=== PATIENT | male | born 1975 | race Caucasian/White ===

== ENCOUNTER 2019-02-21 10:25 | Emergency (ER) | payer MEDICAID, SELFPAY ==
[2019-02-21 10:33] VITALS: BP 123/79; PULSE 83; RESP 14; TEMP 37; O2SAT 99
--- NOTE | 2019-02-21 10:34 | ED.GENADUL_ITS ---
Discharge Plan Disposition Patient Disposition: HOME Condition: Stable Discharge Details Chief Complaint: Nk/Back Pain Clinical Impression: Lumbar paraspinal muscle spasm, Back pain Primary Care Provider: Diana Pearson ED Provider: Claudine Gonzales Home Meds and New Rx's Prescriptions: No Action omeprazole 20 MG capsule,delayed release(DR/EC) 20 mg PO DAILY PRN PRNRF: 0 pseudoephedrine HCl [Sudogest] 30 MG tablet 60 mg PO PRN PRNRF: 0 albuterol sulfate [Ventolin HFA] 60 PUFF HFA aerosol inhaler 2 puff Inhalation DIRECTED PRNQty: 0 RF: 0 methylphenidate HCl [Concerta] 18 mg Tablet Extended Release 24hr 18 mg PO QAM RF: 0 Medical Decision Making 44-year-old male presents with right-sided lower back pain for the past few days after bending forward picking up a tire. No cauda equina symptoms. No fever. Vitals within normal limits. No focal deficits. Patient's lumbar spine appears rotated and out of alignment. There is no bony deformity or step-off noted to spine. He is tender in the right paraspinal lumbar region and right buttock region. There is no evidence of rash or trauma. Patient drove himself to the emergency department. Patient states he was told by his primary care doctor to limit his use of ibuprofen due to having one small kidney. Appears consistent with musculoskeletal strain/spasm. As patient drove himself to the emergency department, will hold on any sedating medications at this time. We will send home with a prescription for methocarbamol. We will hold on any Toradol, or steroid prescription due to his concern for his kidney. Patient is instructed that he can have pain for several days to 1 to 2 weeks if his back continues to spasm. He is instructed to alternate ice and heat, Tylenol, take the muscle relaxer as directed. Also sent home with 3 tabs of oxycodone. He is instructed return here if worse. HPI General Mode of arrival: ambulatory . Date/Time Provider Initiated Documentation: 02/21/19 10:32 . Limitations to Documentation: no limitations . Information obtained by: patient . HPI Narrative: Patient is a 44-year-old male who presents the ED with complaint of right-sided lower back pain for the past 2 days after bending forward picking up tires at work. Patient admits to sudden onset of right-sided lower back and right buttock pain. He states since then the pain is progressed down his right posterior thigh. He denies any fever, nausea, vomiting, abdominal pain, bowel or bladder incontinence, leg weakness or numbness. He states he has history of one small kidney and was advised to limit his use of ibuprofen. He states he is taken Tylenol without relief. Related Data Home Medications Medication Instructions Recorded Confirmed omeprazole 20 mg PO DAILY PRN PRN 01/11/15 02/21/19 albuterol sulfate [Ventolin HFA] 2 puff INHALATION DIRECTED PRN 04/27/17 02/21/19 #0 pseudoephedrine HCl [Sudogest] 60 mg PO PRN PRN 04/27/17 02/21/19 methylphenidate HCl [Concerta] 18 mg PO QAM 02/21/19 02/21/19 Previous Rx's Medication Instructions Recorded albuterol sulfate [Ventolin HFA] 2 puff INHALATION DIRECTED PRN 04/27/17 #0 Allergies Allergy/AdvReac Type Severity Reaction Status Date / Time No Known Allergies Allergy Unverified 02/21/19 10:37 Review of Systems Review of Systems All systems reviewed & are unremarkable except as noted in HPI and below Constitutional Reports as per HPI, Denies chills and Denies fever(s) Eyes Denies blurry vision ENT Denies dizziness, Denies sore throat and Denies throat swelling Cardiovascular Denies chest pain and Denies dyspnea Respiratory Denies cough and Denies dyspnea Gastrointestinal Denies abdominal pain, Denies diarrhea and Denies vomiting Genitourinary Denies hematuria and Denies dysuria Musculoskeletal Reports back pain and Denies numbness Integumentary/Breasts Denies lesions and Denies rash Neurologic Denies dizziness, Denies focal weakness and Denies numbness Allergic/Immunologic Denies throat swelling [facility] Medical History ADD (attention deficit disorder) Anal fissure GERD (gastroesophageal reflux disease) Lateral epicondylitis Sciatica Surgical History History of hernia repair (Chronic) Social History Smoking/Tobacco Use Status: Current every day Drug use: Daily Do you feel safe at home: Yes Do you feel safe in your relationship?: Yes Exam Const General: cooperative, healthy appearing and no acute distress [facility] Head: normal to inspection Face and sinus: normal facial exam Eyes General: appearance normal, both eyes and all related structures EOM: EOM intact bilaterally Neck Neck: normal visual inspection and No submandibular swelling Lymphatic: no lymphadenopathy noted Chest Chest: normal inspection of the chest and no tenderness Resp Effort & Inspection: normal respiratory effort and able to speak in complete sentences Auscultation: clear to auscultation bilaterally Cardio Rate: regular rate Rhythm: regular rhythm GI Inspection: normal to inspection Palpation: soft, not firm, not rigid and nontender Auscultation: normal bowel sounds Male General Exam: Yes normal external exam Back/Spine/Pelvis Thoracic/Lumbar Spine: thoracic and lumbar spine normal to inspection and straight leg raise negative bilaterally Other: Lower back appears rotated, alignment rotated. Tender to palpation right lumbar paraspinal region and right buttock. Skin General skin exam: no rashes or lesions noted Neuro General: alert, awake and oriented x3 Cognition: normal cognition Speech: speech normal Motor: muscle tone normal throughout and strength 5/5 throughout Sensory Exam: no sensory deficits noted Extrem General: normal to inspection, full ROM and no edema Other: Bilateral DP/PT pulses intact. Psych Appearance: grossly normal Mental Status: mental status grossly normal Speech and Movement: speech and movement normal Affect: normal affect
[2019-02-21] MEDS: oxyCODONE 5 MG TAB 15 MG PO (12:02)
== END 2019-02-21 12:09 | disposition home or self-care (01) ==
PROVIDERS: Emergency Provider Physician Assistant; PCP Physician Assistant Medical
DX: M62.830 Muscle spasm of back (principal)
CPT/HCPCS: 99283

== ENCOUNTER 2023-04-16 20:24 | Emergency (ER) | payer MEDICAID, SELFPAY ==
[2023-04-16 20:41] VITALS: BP 127/83; PULSE 98; RESP 16; TEMP 36.4; O2SAT 94
[2023-04-16] MEDS: Tetracaine 0.5% 4 ML BTL OP (21:03)
--- NOTE | 2023-04-16 21:10 | ED.GENADUL_ITS ---
Discharge Plan Disposition Patient Disposition: Home Discharge Details Clinical Impression: Eye foreign body Primary Care Provider: Diana Pearson ED Provider: Casey Santiago Home Meds and New Rx's Prescriptions: No Action omeprazole 20 MG capsule,delayed release(DR/EC) 20 mg PO DAILY PRN PRN pseudoephedrine HCl [Sudogest] 30 MG tablet 60 mg PO PRN PRN albuterol sulfate [Ventolin HFA] 60 PUFF HFA aerosol inhaler 2 puff Inhalation DIRECTED PRNQty: 0 0RF methylphenidate HCl [Concerta] 18 mg Tablet Extended Release 24hr 18 mg PO QAM methocarbamol 750 mg tablet 750 mg PO QID PRN (Reason: muscle spasm) Qty: 14 0RF Discharge Instructions Instructions: Eye Foreign Body (ED) Additional Instructions: You were seen in the emergency department for a sensation of a foreign body in your left eye. It does look like you could have a small foreign body at the 10 o'clock position of the left eye. We tried to remove this at bedside but we were unsuccessful. We sent a referral to the eye care center in [facility]. Call them tomorrow morning and they will be expecting a call to see them in the office tomorrow. Please return if you develop any worsening pain, any loss of vision, or any other symptoms that are worrisome to you. Follow-up with your primary care doctor additionally. Referrals: [facility] [Outside] - 1 day Diana Pearson [Primary Care Provider] - 1 week Medical Decision Making 48-year-old male presents with foreign body sensation in the left eye. It does look like he could have a foreign body in the 10 o'clock position in the left eye. I tried to remove this at bedside without success. He has no vision changes. No severe eye pain and he is able to keep his eye open without difficulty. No redness or swelling or proptosis to the eye to suggest a more serious cause of the patient's symptomology. I do think it is caused by this small foreign body. I have exhausted techniques in the air in the emergency department to remove this. I have sent a referral to should be to see him urgently. He said he will call their office first thing in the morning and I will recommend that they see him tomorrow afternoon. He is agreeable with this plan and says the pain is not that bad but he can just feel it. Will discharge with return precautions. Medical Records Medical records reviewed: Yes I reviewed the patient's medical records. HPI General Date/Time Provider Initiated Documentation: 04/16/23 20:37 . Limitations to Documentation: no limitations . Information obtained by: patient . HPI Narrative: 48-year-old male presents with foreign body sensation in the left eye. Says that it started yesterday. Can think of anything that he got into his eye. His son looked at his eye and it looks like he had same thing in the 10 o'clock position in the left eye. He came here. Denies vision changes. Denies any other complaints. Does not work with metal. Related Data Home Medications Medication Instructions Recorded Confirmed omeprazole 20 mg capsule,delayed 20 mg PO DAILY PRN PRN 01/11/15 04/16/23 release albuterol sulfate 90 mcg/actuation 2 puff inhalation DIRECTED PRN 04/27/17 04/16/23 aerosol inhaler (Ventolin HFA) ##0 pseudoephedrine HCl 30 mg tablet 60 mg PO PRN PRN 04/27/17 04/16/23 (Sudogest) methocarbamol 750 mg tablet 750 mg PO QID PRN muscle spasm #14 02/21/19 04/16/23 tabs methylphenidate HCl 18 mg 18 mg PO QAM 02/21/19 04/16/23 tablet,extended release 24 hr (Concerta) Previous Rx's Medication Instructions Recorded albuterol sulfate 90 mcg/actuation 2 puff inhalation DIRECTED PRN 04/27/17 aerosol inhaler (Ventolin HFA) ##0 methocarbamol 750 mg tablet 750 mg PO QID PRN muscle spasm #14 02/21/19 tabs Allergies Allergy/AdvReac Type Severity Reaction Status Date / Time No Known Allergies Allergy Unverified 04/16/23 20:47 General Stated Complaint: EyeProblem GARFIELD: 4 Review of Systems Constitutional Constitutional: Denies chills, Denies fever(s) and Denies headache(s) Eyes Eyes: Denies change in vision Comments: left eye pain. ENT Ears, Nose, Mouth, and Throat: Denies headache(s) and Denies odynophagia Cardiovascular Cardiovascular: Denies chest pain and Denies dyspnea Respiratory Respiratory: Denies dyspnea Gastrointestinal Gastrointestinal: Denies abdominal pain, Denies diarrhea, Denies nausea, Denies odynophagia and Denies vomiting Genitourinary Genitourinary: Denies dysuria Musculoskeletal Musculoskeletal: Denies myalgias Integumentary/Breasts Skin/Breast: Denies changing lesions Neurologic Neurologic: Denies behavioral changes and Denies headache(s) Psychiatric Psychiatric: Denies behavioral changes Endocrine Endocrine: Denies heat intolerance Hematologic/Lymphatic Hematologic/Lymphatic: Denies lymphadenopathy PFSH All Active Problems Eye foreign body (Acute) Medical History ADD (attention deficit disorder) Anal fissure GERD (gastroesophageal reflux disease) Lateral epicondylitis Sciatica Surgical History History of hernia repair Social History Smoking/Tobacco Use Status: Current every day Smoking risk assessment performed?: Yes Drug use: Daily Do you feel safe at home: Yes Do you feel safe in your relationship?: Yes Exam Const General: cooperative Nutritional Appearance: average body habitus Orientation: alert, awake and oriented x3 HENMT Head: normal to inspection Ears: external ears normal Mouth: moist mucous membranes Other: Looks to have a small 1 mm foreign body laying on top of the cornea at the 10 o'clock position of the left eye. Attempted to remove this at bedside with Q- tip and followed by needle without success. Pupils equal and round reactive to light. Otherwise unremarkable eye exam. Eyes Pupils: PERRL EOM: EOM intact bilaterally and No nystagmus Neck Neck: full ROM and no tracheal deviation Chest Chest: normal inspection of the chest Resp Auscultation: clear to auscultation bilaterally Cardio Rate: regular rate Rhythm: regular rhythm GI Inspection: normal to inspection Palpation: soft, no guarding, not rigid and nontender Back/Spine/Pelvis Back: No no CVA tenderness Thoracic/Lumbar Spine: thoracic and lumbar spine normal to inspection Skin General skin exam: no rashes or lesions noted Neuro General: patient alert, patient awake and patient oriented x3 Cranial Nerves: CN's II-XI intact bilaterally, PERRL and no nystagmus Cognition: normal cognition Motor: muscle tone normal throughout and strength 5/5 throughout Sensory Exam: no sensory deficits noted Extrem General: normal to inspection Course Vital Signs Vital signs: Vital Signs Temperature 36.4 C 04/16/23 20:41 Pulse 98 H 04/16/23 20:41 Respiratory Rate 16 04/16/23 20:41 Blood Pressure 127/83 04/16/23 20:41 Pulse Oximetry 94 04/16/23 20:41 Temperature 36.4 C 04/16/23 20:41 Temperature Source Tympanic 04/16/23 20:41 Pulse 98 H 04/16/23 20:41 Respiratory Rate 16 04/16/23 20:41 Respiratory Effort Normal 04/16/23 20:45 Blood Pressure 127/83 04/16/23 20:41 Blood Pressure Position Sitting 04/16/23 20:41 Pulse Oximetry 94 04/16/23 20:41 Oxygen Delivery Method Room Air 04/16/23 20:41 Oxygen Flow Rate 0 04/16/23 20:41 Pain Level 5 04/16/23 20:41
== END 2023-04-16 21:25 | disposition home or self-care (01) ==
PROVIDERS: Emergency Provider Student in an Organized Health Care Education/Training Program; PCP Physician Assistant Medical
DX: T15.02XA Foreign body in cornea, left eye, initial encounter (principal); X58.XXXA Exposure to other specified factors, initial encounter
CPT/HCPCS: 99282

== ENCOUNTER 2023-06-09 11:50 | Emergency (ER) | payer MEDICAID, SELFPAY ==
[2023-06-09 11:56] VITALS: BP 129/86; PULSE 87; RESP 20; TEMP 37.2; O2SAT 99
--- NOTE | 2023-06-09 12:56 | ED.GENADUL_ITS ---
Discharge Plan Disposition Patient Disposition: Home Condition: Good Discharge Details Clinical Impression: Anal fissure Primary Care Provider: Diana Pearson ED Provider: Hanny Carter Home Meds and New Rx's Prescriptions: No Action omeprazole 20 MG capsule,delayed release(DR/EC) 20 mg PO DAILY PRN PRN pseudoephedrine HCl [Sudogest] 30 MG tablet 60 mg PO PRN PRN albuterol sulfate [Ventolin HFA] 60 PUFF HFA aerosol inhaler 2 puff Inhalation DIRECTED PRNQty: 0 0RF methylphenidate HCl [Concerta] 18 mg Tablet Extended Release 24hr 18 mg PO QAM methocarbamol 750 mg tablet 750 mg PO QID PRN (Reason: muscle spasm) Qty: 14 0RF Discharge Instructions Instructions: Anal Fissure (ED) Additional Instructions: Continue taking miralax at home. You can also use hydrocortisone/preparation H, tylenol, and ibuprofen for symptoms. Follow up with general surgery; they will call to schedule an appointment. Return to the emergency department for new or worsening symptoms including uncontrolled pain, heavy bleeding, fever, or if you have any other concerns. Referrals: Diana Pearson [Primary Care Provider] - Medical Decision Making 48yo F with hx of anal fissure presents for rectal pain and bleeding x 2 weeks. Symptoms consistent with anal fissure. No significant bleeding, occasional streaks of blood on stool. Vital signs reassuring, no evidence of external hemorrhoids or perianal abscess. Clinically consistent with fissure; will not do internal exam. No heavy bleeding or symptoms of anemia, will not get labs. Tylenol/toradol here. Advised symptomatic treatment at home with OTC meds, sitz baths, hydrocortisone. Referred to general surgery. Discharged home; discharge instructions including return precautions were reviewed with patient who verbalized understanding. All questions were answered and they are in full agreement with the plan. HPI General Mode of arrival: ambulatory . Date/Time Provider Initiated Documentation: 06/09/23 11:59 . Limitations to Documentation: no limitations . Information obtained by: patient . HPI Narrative: 48yo F with hx of anal fissure presents for rectal pain and bleeding x 2 weeks. Moderate rectal pain and pressure, constant, worse with bowel movements, somewhat improved by tylenol, feels similar to prior fissure. Symptoms improve as more time passes after bowel movement but worsen again with next BM. Occasional bright red streaks on stool. No clots or significant rectal bleeding. Is taking tylenol and miralax. He is otherwise in his usual state of health with no fevers, chills, rash, abdominal pain, nausea, vomiting, lightheadedness, or other concerns. Related Data Home Medications Medication Instructions Recorded Confirmed omeprazole 20 mg capsule,delayed 20 mg PO DAILY PRN PRN 01/11/15 04/16/23 release albuterol sulfate 90 mcg/actuation 2 puff inhalation DIRECTED PRN 04/27/17 04/16/23 aerosol inhaler (Ventolin HFA) ##0 pseudoephedrine HCl 30 mg tablet 60 mg PO PRN PRN 04/27/17 04/16/23 (Sudogest) methocarbamol 750 mg tablet 750 mg PO QID PRN muscle spasm #14 02/21/19 04/16/23 tabs methylphenidate HCl 18 mg 18 mg PO QAM 02/21/19 04/16/23 tablet,extended release 24 hr (Concerta) Previous Rx's Medication Instructions Recorded albuterol sulfate 90 mcg/actuation 2 puff inhalation DIRECTED PRN 04/27/17 aerosol inhaler (Ventolin HFA) ##0 methocarbamol 750 mg tablet 750 mg PO QID PRN muscle spasm #14 02/21/19 tabs Allergies Allergy/AdvReac Type Severity Reaction Status Date / Time No Known Allergies Allergy Unverified 06/09/23 11:59 General Stated Complaint: GenMedical GARFIELD: 3 Review of Systems Narrative: see HPI PFSH All Active Problems (Updated 06/09/23 @ 13:11 by Hanny Carter MD) Anal fissure (Acute) Medical History ADD (attention deficit disorder) Anal fissure GERD (gastroesophageal reflux disease) Lateral epicondylitis Sciatica Surgical History History of hernia repair Social History Smoking/Tobacco Use Status: Current every day Smoking risk assessment performed?: Yes Alcohol Intake: never Drug use: Daily Substance use type: does not use Do you feel safe at home: Yes Do you feel safe in your relationship?: Yes Exam Narrative Exam Narrative: General: Alert, well appearing, well nourished, in no acute distress. Head: Normocephalic, atraumatic Neck: Trachea midline, Neck supple. Cardiac: No cyanosis. Resp: No respiratory distress. Speaking in full sentences. Abd: Soft, non-distended, nontender : No suprapubic tenderness. Anal: Normal external anal exam. No external hemorrhoids or visible fissure. No perianal abscess. No active bleeding. Extremities: No deformities. No peripheral edema. Neurologic: GCS 15. Moves all extremities freely against gravity Course Vital Signs Vital signs: Vital Signs Temperature 37.2 C 06/09/23 11:56 Pulse 87 06/09/23 11:56 Respiratory Rate 20 06/09/23 11:56 Blood Pressure 129/86 06/09/23 11:56 Pulse Oximetry 99 06/09/23 11:56 Temperature 37.2 C 06/09/23 11:56 Pulse 87 06/09/23 11:56 Respiratory Rate 20 06/09/23 11:56 Respiratory Effort Normal 06/09/23 12:00 Respiratory Depth Normal 06/09/23 12:00 Respiratory Pattern Normal 06/09/23 12:00 Blood Pressure 129/86 06/09/23 11:56 Blood Pressure Position Sitting 06/09/23 11:56 Pulse Oximetry 99 06/09/23 11:56 Oxygen Delivery Method Room Air 06/09/23 11:56 Oxygen Flow Rate 0 06/09/23 11:56 Pain Level 5 06/09/23 11:56
--- NOTE | 2023-06-09 13:06 | NUR.NOTE ---
Faxed referral to [facility] for anal fissures Nursing Note:
[2023-06-09] MEDS: Acetaminophen 500 MG TAB 1000 MG PO (13:15)
[2023-06-09] MEDS: Ketorolac 15 MG/ML VIAL IM (13:16)
== END 2023-06-09 13:21 | disposition home or self-care (01) ==
PROVIDERS: Emergency Provider Student in an Organized Health Care Education/Training Program; PCP Physician Assistant Medical
DX: K60.2 Anal fissure, unspecified (principal); F17.210 Nicotine dependence, cigarettes, uncomplicated
CPT/HCPCS: 96372; 99283; 99282; J1885